=== PATIENT | male | born 1940 | race Caucasian/White ===

== ENCOUNTER 2018-04-26 10:59 | Emergency (ER) | payer MEDICARE, OTHER ==
[2018-04-26 11:10] VITALS: BP 153/89
--- NOTE | 2018-04-26 11:35 | ED Physician Documentation ---
General Adult - HISTORIAN Historian: patient, spouse - HPI Stated Complaint: Unable to swallow Chief Complaint: General Adult Additional Information: One week of difficulty swallowing which has worsened over time. Now he can't even swallow saliva. He is unable to eat or drink. Denies pain. Didn't feel like there was something stuck. Feels the difficulty is high - points to just under mandible. No treatment attempted. No other associated signs. - ROS CONST: no problems - PAST HX Past History: hypertension, other (HLD) Surgeries/Procedures: other (urostomy?) Allergies/Adverse Reactions: Allergies Allergy/AdvReac Type Severity Reaction Status Date / Time No Known Allergies Allergy Verified 04/26/18 11:10 Home Medications: Ambulatory Orders Medication Instructions Recorded Allopurinol [Zyloprim] 1 tab PO DAILY 04/26/18 Aspirin [Cyrus] 1 tab PO DAILY 04/26/18 Bisoprolol/Hydrochlorothiazide 1 tab PO DAILY 04/26/18 [Bisoprolol-Hctz 2.5-6.25 mg Tb] Simvastatin [Zocor] 1 tab PO DAILY 04/26/18 - SOCIAL HX Smoking History: cigarettes - FAMILY HX Family History: No (M at 98, F at 96) - VITAL SIGNS Vital Signs: Vital Signs Temp Pulse Resp BP Pulse Ox 97.1 F L 83 16 153/89 93 04/26/18 11:07 04/26/18 11:07 04/26/18 11:07 04/26/18 11:07 04/26/18 11:07 - REVIEWED ASSESSMENTS Nursing Assessment Reviewed: Yes Vitals Reviewed: Yes Progress - Progress Progress: Report Submission Date: Apr 26, 2018 1:30:41 PM CDT Patient Study Name: TIGIST KRAMER Date: Apr 26, 2018 12:28:05 PM CDT Modality Type: CT\SR Gender: M Description: CT NECK SOFT TISSUE W/ : 38 Institution: [facility] Physician: OLIVIA MARTÍNEZ CT soft tissue neck with contrast History: Dysphasia Technique: Helically acquired images were obtained through the soft tissues of the neck following IV contrast. Findings: Lung apices are clear. Several small mediastinal lymph nodes are present, nonspecific not technically abnormally enlarged. There is additionally evidence for old granulomatous disease. There is motion degradation at the level of the oropharynx. Just to the right of the uvula and tracking inferiorly to the level of the epiglottis, there is mildly asymmetric enlargement of the right oropharynx compared with the left. Additionally, more inferiorly, there is asymmetrically increased soft tissue density within the right pyriform sinus compared with the left. The epiglottis itself appears normal. The vallecula appear normal. True and false cords are normal. Tiny nodules of the bilateral thyroid lobes are present. Heavy atherosclerotic findings are present at the carotid bifurcations bilaterally. The nasopharynx normal. Visualized paranasal sinuses and mastoid air cells are clear. Parotid and submandibular glands are normal. Impression: There is motion degradation at the level of the upper right oropharynx, limiting assessment. However, there is asymmetric soft tissue density at the level of the right oropharynx just to the right of the uvula and extending inferiorly to the level of the epiglottis. Additionally, there is asymmetrically prominent soft tissue density within the right pyriform sinus. A neoplastic process along the mucosal would not be excluded. ENT consultation would be recommended. No lymphadenopathy is identified within the neck. Heavy atherosclerotic findings are present at the carotid bifurcations bilaterally with dense calcifications. There are several small mediastinal lymph nodes. A few these are borderline in size in short axis dimension non are clearly pathologically enlarged. Electronically signed on Apr 26, 2018 1:30:41 PM CDT by: Evy Delaney ED Results Lab/Radiology - Orders Orders: ED Orders Category Date Time Status CT NECK SOFT TISSUE W/ CON Stat Exams 04/26/18 Ordered CBC/PLATELET/DIFF Routine Lab 04/26/18 Ordered CMP Routine Lab 04/26/18 Ordered URINALYSIS Routine Lab 04/26/18 Ordered General Adult Physical Exam - PHYSICAL EXAM GENERAL APPEARANCE: mild distress EENT: eye inspection normal, ENT inspection normal, pharynx normal (Mallampati 2 ), other (no supraclavicular or cervical adenopathy detected) NECK: normal inspection, supple RESPIRATORY: no resp distress, breath sounds normal CVS: reg rate & rhythm, heart sounds normal ABDOMEN: soft, normal bowel sounds, non-tender BACK: normal inspection SKIN: warm/dry, normal color EXTREMITIES: no evidence of injury NEURO: CN's nml as tested, motor nml, sensation nml, cognition normal Discharge Clincal Impression: Dysphagia Qualifiers: Dysphagia type: unspecified Qualified Code(s): R13.10 - Dysphagia, unspecified Referrals: Primary Doctor,No [Primary Care Provider] - 2 Days Additional Instructions: I spoke with Dr. Charles Diaz, ENT, at the [facility]. Dr. Antunez will see you at the [facility] in [place] this afternoon. The address is [address] [place] [address]. Driving directions are attached. Condition: Fair Disposition: 01 HOME, SELF-CARE Decision to Admit: NO Decision Time: 13:54
[2018-04-26 11:51] LABS: BASOPHILS % 0.7 (0.0-1.5); EOSINOPHILS % 4.5 % (0.0-6.8); MEAN CORPUSCULAR HEMOGLOBIN 33.2 pg (28.0-34.0); MONOCYTES % 6.1 % (0.0-11.0); NEUTROPHILS # 8.6 # k/uL (1.4-7.7)
[2018-04-26 12:05] LABS: eGFR (African) > 60; eGFR (Non-African) > 60
--- NOTE | 2018-04-26 20:20 | Diagnostic Imaging Report ---
[facility] [id number] [address] [id number] Report Submission Date: Apr 26, 2018 1:30:41 PM CDT Patient Study Name: TIGIST KRAMER Date: Apr 26, 2018 12:28:05 PM CDT Modality Type: CT\SR Gender: M Description: CT NECK SOFT TISSUE W/ : 38 Institution: [facility] Physician: OLIVIA MARTÍNEZ CT soft tissue neck with contrast History: Dysphasia Technique: Helically acquired images were obtained through the soft tissues of the neck following IV contrast. Findings: Lung apices are clear. Several small mediastinal lymph nodes are present, nonspecific not technically abnormally enlarged. There is additionally evidence for old granulomatous disease. There is motion degradation at the level of the oropharynx. Just to the right of the uvula and tracking inferiorly to the level of the epiglottis, there is mildly asymmetric enlargement of the right oropharynx compared with the left. Additionally, more inferiorly, there is asymmetrically increased soft tissue density within the right pyriform sinus compared with the left. The epiglottis itself appears normal. The vallecula appear normal. True and false cords are normal. Tiny nodules of the bilateral thyroid lobes are present. Heavy atherosclerotic findings are present at the carotid bifurcations bilaterally. The nasopharynx normal. Visualized paranasal sinuses and mastoid air cells are clear. Parotid and submandibular glands are normal. Impression: There is motion degradation at the level of the upper right oropharynx, limiting assessment. However, there is asymmetric soft tissue density at the level of the right oropharynx just to the right of the uvula and extending inferiorly to the level of the epiglottis. Additionally, there is asymmetrically prominent soft tissue density within the right pyriform sinus. A neoplastic process along the mucosal would not be excluded. ENT consultation would be recommended. No lymphadenopathy is identified within the neck. Heavy atherosclerotic findings are present at the carotid bifurcations bilaterally with dense calcifications. There are several small mediastinal lymph nodes. A few these are borderline in size in short axis dimension non are clearly pathologically enlarged. Electronically signed on Apr 26, 2018 1:30:41 PM CDT by: Evy LUGO
== END 2018-04-26 14:13 | disposition home or self-care (01) ==
LOC: ED 10:59
DX: R13.10 Dysphagia, unspecified (principal)
CPT/HCPCS: 70491; 80053; 85025; 99284; Q9967; S1016